=== PATIENT | female | born 1970 | race Caucasian/White ===

== ENCOUNTER → 2022-10-18 | Day surgery (SDC) | payer BC ==
--- NOTE | 2022-10-23 11:37 | MM ---
Reason for Exam: Post Procedure Mammogram. Last screening mammogram was performed less than 1 month ago. Patient History: Menarche at age 12. Patient has no children. Perimenopausal. Risk Values: Jerica 5 year model risk: 1.2%. NCI Lifetime model risk: 9.4%. Prior Study Comparison: 11/11/2008 Bilateral Screening Mammogram, [facility]. 11/13/2008 Left Diagnostic Mammogram, [facility]. 10/06/2022 Bilateral MG 3D diag mammo w/cad ANTWON, [facility]. Tissue Density: Left: The breast tissue is heterogeneously dense. This may lower the sensitivity of mammography. Pathology Description: Location: 3 o'clock. Marker Left Behind. Needle Type: Mammotome Cores: 4 Gauge: 13 Attempted to visualize suspected lesion at 7:00 in the left breast at 7 cm from the nipple. No definitive lesion was reproducible on today's exam. Attention was then turned to the large left breast mass at 3:00 for sampling. The procedure of ultrasound guided core biopsy was explained to the patient. Benefits, alternatives, and risks were discussed. An informed consent was then obtained. The patient was placed in supine positioning for imaging and for the procedure. The overlying skin was prepped and draped in usual sterile fashion. Lidocaine buffered with epinephrine was used as anesthetic into the skin and subcutaneous tissue up to area of concern in the left breast. Under ultrasound guidance, a 12-gauge vacuum assisted biopsy gun device was used to obtain 4 core samples. Following this, a biopsy clip was left in lesion. The patient tolerated the procedure well without any immediate complication. The patient was kept in the radiology department for short stay after the procedure and then discharged home in stable condition. Postprocedure mammogram: The patient was transferred to mammography for physician ordered post procedure mammogram for clip placement verification. The clip appears within appropriate position in the left breast mass. Impression: Successful, uncomplicated ultrasound guided core biopsy of area of concern in the left breast, full pathology results to follow. Nonvisualization of questionable lesion at 7:00 in the left breast 7 cm the nipple. Attention on follow-up exam. Pathology Results: Result: Malignant. LEFT BREAST, THREE O'CLOCK, 6 CM FROM NIPPLE, ULTRASOUND GUIDED NEEDLE CORE BIOPSY: Detached clusters of atypical cells in a background of blood suspicious for malignancy, insufficient for definitive diagnosis due to lack of background stroma and scanty sampling. See note. Notes While the detached clusters of atypical cells are suspicious for malignancy, the specimen is insufficient for definitive diagnosis due to absence of any sampled involved stroma. Recommend repeat biopsy as clinically indicated for more definitive diagnosis. Boiling Off Winder material from this case was also reviewed by Dr. Hayes Byrnes, who agrees with the interpretation. Overall Assessment: Malignant Assessment: MG diagnostic mammo LT wo CAD. - Left: Known biopsy proven malignancy, BI-RAD 6. Management: Surgical Consultation of the left breast. Needle localization for atypical cells suspicious for malignancy. Electronically signed and approved by: Eliseo Manzanares D.O.
== END ==
LOC: RADUSWWP 10:11
PROVIDERS: ATTEND Surgery
DX: R92.8 Other abnormal and inconclusive findings on diagnostic imaging of breast (principal)
CPT/HCPCS: 88305; 77065; 19083; A4648

== ENCOUNTER → 2022-10-30 | Day surgery (SDC) | payer BC ==
[2022-10-30 07:49] VITALS: RESP 16
[2022-10-30 09:24] VITALS: BP 154/87; PULSE 82; TEMP 98.4
== END ==
LOC: RADMAMWWP 07:26
PROVIDERS: ATTEND Surgery
DX: D05.12 Intraductal carcinoma in situ of left breast (principal)
CPT/HCPCS: 88305; 88342; 88341; 19081; A4648; J2001

== ENCOUNTER → 2023-02-23 | Outpatient (CLI) | payer BC ==
--- NOTE | 2023-02-23 12:19 | CT ---
EXAMINATION TYPE: CT ChestAbdPelvis w con DATE OF EXAM: 02/23/2023 COMPARISON: None HISTORY: Hx breast ca, pre chemo scan CT DLP: 925.70 mGycm Automated exposure control for dose reduction was used. CONTRAST: CT scan of the chest, abdomen and pelvis is performed with Oral Contrast and with IV Contrast, patien t injected with 100 mL of Isovue 300. FINDINGS: Chest CT: There is a 7.25 cm subpleural parenchymal nodule in the right upper lobe anteriorly and medially. The re is a 10.3 mm nodule in the right lower lobe. There are no left lung nodules. There is no airspace consolidation or abnormal interstitial density. There is no pleural effusion, pleural thickening or pneumothorax. Great vessels the chest are normal and there is no mediastinal, hilar or axillary adenopathy. There are no focal osseous abnormalities. CT abdomen and pelvis: Gallbladder is normal is no biliary ductal dilatation. There is no focal mass or organomegaly involving the liver, pancreas, spleen or adrenal glands. There is no solid renal mass or hydronephrosis. There is no retroperitoneal adenopathy or hemorrhage in the caliber the abdominal aorta is normal. The bowel loops are normal in caliber and dilatation or obstruction. There is no inflammatory change in the bowel wall or mesentery. There is no free intraperitoneal air or fluid. There is a 3.3 cm simple cyst of the left adnexa. There is a tiny sclerotic density and L3 tiny sclerotic density in the right iliac bone. No destructi ve osseous lesions are seen. Abdominal and pelvic soft tissues are normal. IMPRESSION: 1. 2 right lung pulmonary nodules as described above. Given the provided history, pulmonary metastasi s is not entirely excluded. Short-term follow-up in 3-4 months is recommended. 2. 2 small sclerotic densities of L3 in the right iliac bone. Bone metastasis is not entirely exclude d. Bone scan might be useful for further evaluation. 3. No acute cardiopulmonary disease. 4. No acute changes within the abdomen or pelvis. 5. 3.3 cm cyst of the left adnexa.
== END | disposition home or self-care (01) ==
LOC: RADCTMAIN 09:39
PROVIDERS: ATTEND Internal Medicine Hematology & Oncology
DX: C50.112 Malignant neoplasm of central portion of left female breast (principal); R91.8 Other nonspecific abnormal finding of lung field; J98.4 Other disorders of lung; N83.8 Other noninflammatory disorders of ovary, fallopian tube and broad ligament
CPT/HCPCS: 71260; 74177; Q9967

== ENCOUNTER → 2023-06-28 | Outpatient (CLI) | payer BC ==
--- NOTE | 2023-06-28 13:34 | BD ---
EXAMINATION TYPE: Axial Bone Density DATE OF EXAM: 06/28/2023 CLINICAL HISTORY: 53 years old Female. ICD-10 CODE: C50.112 BR CANCER Height: 67 Weight: 185 FRAX RISK QUESTIONS: Alcohol (3 or more units per day): no Family History (Parent hip fracture): no Glucocorticoids (More than 3mos): no (Ex: prednisone, prednisolone, methylprednisolone, dexamethasone, and hydrocortisone). History of Fracture in Adulthood: yes Secondary Osteoporosis: 1. Type 1 Diabetes: no 2. Hyperthyroidism: no 3. Menopause before 45: no 4. Malnutrition: no 5. Chronic liver disease: no Rheumatoid Arthritis: no Current Tobacco Use: no RISK FACTORS HISTORY OF: History of Wrist Fracture: right When: age 30 Surgery to Spine/Hip(right/left)/Wrist (right/left): no EXAM MEASUREMENTS: Bone mineral densitometry was performed using the [employer] System. Bone mineral density as measured about the Lumbar spine is: ----- L1-L4(G/cm2): 1.311 T Score Values are as follows: ----- L1: 1.1 ----- L2: 0.5 ----- L3: 1.0 ----- L4: 1.5 ----- L1-L4: 1.2 Z Score Values are as follows: ----- L11.2 ----- L2: 0.6 ----- L3: 1.1 ----- L4: 1.6 ----- L1-L4: 1.2 Bone mineral density baseline: Bone mineral density about the R hip (g/cm2): 1.139 Bone mineral density about the L hip (g/cm2): 1.125 T Score values are as follows: -----R Neck: -0.2 -----L Neck: 0.3 -----R Total: 1.0 -----L Total: 0.9 Z Score values are as follows: -----R Neck: 0.4 -----L Neck: 0.8 -----R Total: 1.2 -----L Total: 1.1 Bone mineral density : baseline FRAX%s: The graph provided illustrates a 8.2% chance for a major osteoporotic fx and a 0.2% chance fo r the hips probability for fx in 10 years time. IMPRESSION: Normal (Values between +1 and -1 indicate normal bone mass). Consider repeating this study in 5 year s or sooner if there is some new clinical indication. NOTE: T-SCORE=SD OF THE YOUNG ADULT MEAN.
== END | disposition home or self-care (01) ==
LOC: RADBDWWP 11:28
PROVIDERS: ATTEND Internal Medicine Hematology & Oncology
DX: C50.112 Malignant neoplasm of central portion of left female breast (principal); J45.909 Unspecified asthma, uncomplicated; Z71.3 Dietary counseling and surveillance
CPT/HCPCS: 77080

== ENCOUNTER → 2023-09-04 | Outpatient (CLI) | payer BC ==
--- NOTE | 2023-09-04 12:36 | CT ---
EXAMINATION TYPE: CT chest wo con DATE OF EXAM: 09/04/2023 COMPARISON: 02/23/2023 HISTORY: Lung nodules, hx breast ca CT DLP: 263.[address] of the chest was performed with lung and mediastinal window settings submitted. The la ck of contrast limits evaluation of the vascular, mediastinal and parenchymal structures including th e upper abdomen. LUNGS: The lungs are clear and free of infiltrate. Linear atelectasis or parenchymal scar right media l lung base. Previously noted nodules are not redemonstrated at this time. No pleural effusion. No C T evidence of interstitial lung disease. MEDIASTINUM/NOLAN: Thoracic aorta is of normal caliber with limited evaluation given lack of contrast . The heart is not enlarged. No evidence for mediastinal mass. No lymph nodes greater than 1cm. UPPER ABDOMEN: No significant abnormality is seen. OTHER: Left-sided mastectomy noted. IMPRESSION: 1. Previously noted nodules are not redemonstrated at this time.
== END | disposition home or self-care (01) ==
LOC: RADCTMAIN 11:32
PROVIDERS: ATTEND Internal Medicine Hematology & Oncology
DX: C50.112 Malignant neoplasm of central portion of left female breast (principal); R91.8 Other nonspecific abnormal finding of lung field; J45.909 Unspecified asthma, uncomplicated; Z71.3 Dietary counseling and surveillance
CPT/HCPCS: 71250

== ENCOUNTER 2024-01-10 06:50 | Emergency (ER) | payer BC ==
[2024-01-10 06:59] VITALS: RESP 18
[2024-01-10] MEDS: LIDOCAINE/EPINEPHR/TETRACAINE 5 ML BOTTLE TOPICAL ONE (07:13)
--- NOTE | 2024-01-10 07:35 | ED ---
Lower Extremity Injury HPI - General Chief Complaint: Extremity Injury, Lower Stated Complaint: Right foot issue Time Seen by Provider: 01/10/24 07:00 Source: patient, RN notes reviewed Mode of arrival: ambulatory Limitations: no limitations - History of Present Illness Initial Comments: 53-year-old female presents emergency department with chief complaint bleeding lesion on her right foot second digit. Patient states that she thought it was a wart states that she attempted to freeze it off but states has been bleeding for the last 3 days when she takes the bandage off. Patient states that she does run a lot and states that she is unsure if this caused it or not. Patient denies any paresthesias denies any other complaint. - Related Data Home Medications Medication Instructions Recorded Confirmed Fluticasone Propion/Salmeterol 1 inhalation PO BID 10/09/22 10/30/22 [Advair 100-50 Diskus] Previous Rx's Medication Instructions Recorded ALPRAZolam [Xanax] 0.25 mg PO TID PRN 10 Days #30 tab 11/08/22 Allergies Allergy/AdvReac Type Severity Reaction Status Date / Time No Known Allergies Allergy Verified 01/10/24 06:59 Review of Systems ROS Statement: Those systems with pertinent positive or pertinent negative responses have been documented in the HPI. ROS Other: All systems not noted in ROS Statement are negative. Past Medical History Past Medical History: Asthma, Cancer Additional Past Medical History / Comment(s): Breast CA 2022; History of Any Multi-Drug Resistant Organisms: None Reported Past Surgical History: Breast Surgery Additional Past Surgical History / Comment(s): polyps from nose removed, L sided masectomy 2022 Past Anesthesia/Blood Transfusion Reactions: No Reported Reaction Past Psychological History: No Psychological Hx Reported Smoking Status: Never smoker Past Alcohol Use History: Occasional Past Drug Use History: None Reported General Exam Limitations: no limitations General appearance: alert, in no apparent distress Head exam: Present: atraumatic, normocephalic, normal inspection Eye exam: Present: normal appearance, PERRL, EOMI. Absent: scleral icterus, conjunctival injection, periorbital swelling Respiratory exam: Present: normal lung sounds bilaterally. Absent: respiratory distress, wheezes, rales, rhonchi, stridor Cardiovascular Exam: Present: regular rate, normal rhythm, normal heart sounds. Absent: systolic murmur, diastolic murmur, rubs, gallop, clicks Extremities exam: Present: other (Second digit and plantar surface there is raised vascular appearing lesion with mild erythema no and some venous oozing ) Course Vital Signs 01/10/24 06:55 Temperature 97.9 F Pulse Rate 97 Respiratory 18 Rate Blood Pressure 169/86 O2 Sat by Pulse 96 Oximetry Medical Decision Making - Medical Decision Making Was pt. sent in by a medical professional or institution (, [facility], COMPLEX MANAGER, urgent care, hospital, or penitentiary...) When possible be specific @ -No Did you speak to anyone other than the patient for history (EMS, parent, family, police, friend...)? What history was obtained from this source @ -No Did you review nursing and triage notes (agree or disagree)? Why? @ -I reviewed and agree with nursing and triage notes Were old charts reviewed (outside hosp., previous admission, EMS record, old EKG, old radiological studies, urgent care reports/EKG's, penitentiary records)? Report findings @ -No old charts were reviewed Differential Diagnosis (chest pain, altered mental status, abdominal pain women, abdominal pain men, vaginal bleeding, weakness, fever, dyspnea, syncope, headache, dizziness, GI bleed, back pain, seizure, CVA, palpatations, mental health, musculoskeletal)? @ -Pyogenic granuloma, bleeding wound, EKG interpreted by me (3pts min.). @ -None X-rays interpreted by me (1pt min.). @ -None done CT interpreted by me (1pt min.). @ -None done U/S interpreted by me (1pt. min.). @ -None done What testing was considered but not performed or refused? (CT, X-rays, U/S, labs)? Why? @ -None What meds were considered but not given or refused? Why? @ -None Did you discuss the management of the patient with other professionals (professionals i.e. [facility]JAM[facility] Parry, COMPLEX MANAGER, lab, RT, psych nurse, protective services social worker, basic acoustic analyst, teacher, classifications officer cc/cm, manager case)? Give summary @ -No Was smoking cessation discussed for >3mins.? @ -No Was critical care preformed (if so, how long)? @ -No Were there social determinants of health that impacted care today? How? (Homelessness, low income, unemployed, alcoholism, drug addiction, transportation, low edu. Level, literacy, decrease access to med. care, senior living, rehab)? @ -No Was there de-escalation of care discussed even if they declined (Discuss DNR or withdrawal of care, Hospice)? DNR status @ -No What co-morbidities impacted this encounter? (DM, HTN, Smoking, COPD, CAD, Cancer, CVA, ARF, Chemo, Hep., AIDS, mental health diagnosis, sleep apnea, morbid obesity)? @ -None Was patient admitted / discharged? Hospital course, mention meds given and route, prescriptions, significant lab abnormalities, going to OR and other pertinent info. @ -Discharge let was applied to the area of bleeding bleeding has subsided. Patient did have firm dressing applied will follow-up with dermatology or podi atry for further treatment Undiagnosed new problem with uncertain prognosis? @ -No Drug Therapy requiring intensive monitoring for toxicity (Heparin, Nitro, Insulin, Cardizem)? @ -No Were any procedures done? @ -No Diagnosis/symptom? @ -Pyogenic granuloma Acute, or Chronic, or Acute on Chronic? @ -Acute Uncomplicated (without systemic symptoms) or Complicated (systemic symptoms)? @ -Complicated Side effects of treatment? @ -No Exacerbation, Progression, or Severe Exacerbation? @ -No Poses a threat to life or bodily function? How? (Chest pain, [place], [place], pneumonia, PE, COPD, DKA, ARF, appy, cholecystitis, CVA, Diverticulitis, Homicidal, Suicidal, threat to staff... and all critical care pts) @ -No Disposition Clinical Impression: Pyogenic granuloma Disposition: HOME SELF-CARE Condition: Stable Additional Instructions: Please return to the Emergency Department if symptoms worsen or any other concerns. Is patient prescribed a controlled substance at d/c from ED?: No Referrals: Godfrey Yo DO [Primary Care Provider] - 1-2 days Bailey Pressley DO [STAFF PHYSICIAN] - 1-2 days Miguel nÁgel Ledbetter DPM [STAFF PHYSICIAN] - 1-2 days Shlomo Nobles MD [STAFF PHYSICIAN] - 1-2 days Time of Disposition: 08:07
[2024-01-10 08:27] VITALS: BP 155/82; PULSE 92; TEMP 98
== END 2024-01-10 08:26 | disposition home or self-care (01) ==
LOC: EC 06:50
DX: L98.0 Pyogenic granuloma (principal)
CPT/HCPCS: 99283